=== PATIENT | male | born 1995 | race Caucasian/White ===

== ENCOUNTER 2018-03-12 16:13 | Emergency (ER) | payer OTHER ==
[2018-03-12 18:20] VITALS: BP 150/87
--- NOTE | 2018-03-12 19:05 | UC ---
Abdominal Pain Male HPI - HPI Summary HPI Summary: 22-year-old male presents with 3 day history of lower back pain that has slowly begun to localize to the lower abdomen with the right side being more prominent. States he thought he may have seen some blood in his urine today. Associated with subjective fever and chills. Denies chest pain, shortness of breath, nausea, vomiting, diarrhea, dysuria, frequency, urgency, or penile discharge. - History of Current Complaint Chief Complaint: UCGU Stated Complaint: LOW BACK PAIN Time Seen by Provider: 03/12/18 18:43 Hx Obtained From: Patient Onset/Duration: Gradual Onset, Lasting Days - 3 Severity Initially: Mild Severity Currently: Moderate Pain Intensity: 4 Radiates: No Character: Cramping, Sharp Aggravating Factor(s): Nothing Alleviating Factor(s): Nothing Associated Signs And Symptoms: Positive: Fever, Back Pain, Urinary Symptoms - hematuria. Negative: Chest Pain, Constipation, Blood in Stool, Nausea, Vomiting , Diarrhea, Penile Discharge - Allergies/Home Medications Allergies/Adverse Reactions: Allergies Allergy/AdvReac Type Severity Reaction Status Date / Time No Known Allergies Allergy Verified 09/20/12 17:24 Home Medications: Home Medications Mirtazapine [Remeron] 15 mg PO DAILY PRN 03/12/18 [History Confirmed 03/12/18] PMH/Surg Hx/FS Hx/Imm Hx Previously Healthy: Yes - Denies significant PMH - Surgical History Surgical History: None - Family History Family History: Noncontributory - Social History Occupation: Unemployed Lives: With Family Alcohol Use: None Substance Use Type: Marijuana Substance Use Comment - Amount & Last Used: DAILY Smoking Status (MU): Current Every Day Smoker Type: eCigarettes - Immunization History Vaccination Up to Date: Yes Review of Systems Constitutional: Fever, Chills - Hematuria Skin: Negative Respiratory: Negative Cardiovascular: Negative Gastrointestinal: Abdominal Pain Genitourinary: Hematuria Is Patient Immunocompromised?: No All Other Systems Reviewed And Are Negative: Yes Physical Exam Triage Information Reviewed: Yes Appearance: Well-Appearing, No Pain Distress, Well-Nourished Vital Signs: Initial Vital Signs Temp 99.2 F 03/12/18 18:12 Pulse 73 03/12/18 18:12 Resp 16 03/12/18 18:12 BP 150/87 03/12/18 18:12 Pulse Ox 100 03/12/18 18:12 Vital Signs Reviewed: Yes Neck: Positive: Supple, Nontender Respiratory: Positive: Lungs clear, Normal breath sounds, No respiratory distress Cardiovascular: Positive: RRR, No Murmur Abdomen Description: Positive: No Organomegaly, Soft, Other: - RLQ tenderness without rebound or guarding.. Negative: CVA Tenderness (R), CVA Tenderness (L) , Distended, Guarding Bowel Sounds: Positive: Hyperactive Neurological: Positive: Alert Skin Exam: Normal Abd Pain Male Course/Dx - Course Course Of Treatment: 22 year old male with 3 day history of low back pain that localized to right lower abdominal pain. Afebrile. Mild RLQ tenderness on exam. UA negative. Although I do not suspect appendicitis cannot rule this out therefore recommend further evaluation in the ED. Patient agreeable to exam in ED and will transport via private vehicle. - Differential Dx/Clinical Impression Differential Diagnosis/HQI/PQRI: Appendicitis, Diverticulitis, Renal Colic, Ureteral Stone Provider Diagnoses: RLQ pain - Physician Notification/Consults Discussed Patient Care With: Kareem Zamarripa - [facility] ED Time Discussed With Above Provider: 19:05 Instructed by Provider To: MD Will See In ED Discharge - Sign-Out/Discharge Documenting (check all that apply): Patient Departure All imaging exams completed and their final reports reviewed: No Studies - Discharge Plan Condition: Stable Disposition: HOME-RECOMMEND TO ED Patient Education Materials: Abdominal Pain (ED) Referrals: Uri Lacy MD [Primary Care Provider] - Additional Instructions: The urine test in the clinic today showed no evidence of an infection or kidney stone. With your pain in the right lower quadrant I cannot rule out the possibility of appendicitis therefore recommend that you go strait to the emergency room for further evaluation. - Billing Disposition and Condition Condition: STABLE Disposition: Home-Recommend to ED
== END 2018-03-12 19:12 | disposition home health service (06) ==
LOC: UCCORT 16:13
DX: R10.31 Right lower quadrant pain (principal); F17.210 Nicotine dependence, cigarettes, uncomplicated; F12.90 Cannabis use, unspecified, uncomplicated
CPT/HCPCS: 81003; 99202; G0463

== ENCOUNTER 2018-04-23 16:40 | Emergency (ER) | payer OTHER ==
[2018-04-23] MEDS ORDERED: Ondansetron ODT TAB* 4 MG PO ONE (18:40)
[2018-04-23] MEDS ORDERED: Ketorolac INJ* 60 MG/2 ML VIAL IM ONE (18:40)
--- NOTE | 2018-04-23 18:42 | ED ---
Headache - HPI Summary HPI Summary: pt presents for evaluation of his headache. he is sensitive to light. he states that he does not typicaly get migraines. he has been feeling ill. he denies any fever or chills. he denies any weakness. - History Of Current Complaint Chief Complaint: UCHeleindajean carlos Stated Complaint: HEADACHE,NAUSEA Hx Obtained From: Patient Onset/Duration: Gradual Onset Initially Headache Was: Moderate Currently Pain Is: Mild Timing: Intermittent, Lasting: Location of Headache: Frontal Aggravating Factor: Bright Lights Allevating Factors: Nothing - Allergies/Home Medications Allergies/Adverse Reactions: Allergies Allergy/AdvReac Type Severity Reaction Status Date / Time No Known Allergies Allergy Verified 04/23/18 18:30 Home Medications: Home Medications Acetaminophen [Acetaminophen Extra Strength] 500 mg PO Q6H PRN 04/23/18 [ History Confirmed 04/23/18] Aspirin/Acetaminophen/Caffeine [Excedrin Migraine Caplet] 1 each PO Q6H PRN 12/03 [History Confirmed 04/23/18] PMH/Surg Hx/FS Hx/Imm Hx Previously Healthy: Yes Respiratory History: Reports: Hx Asthma Infectious Disease History: No Infectious Disease History: Denies: Traveled Outside the [place] in Last 30 Days - Family History Family History: Noncontributory - Social History Alcohol Use: Occasionally Substance Use Type: Reports: Marijuana Substance Use Comment - Amount & Last Used: DAILY Smoking Status (MU): Current Every Day Smoker Type: eCigarettes Review of Systems Constitutional: Negative Positive: Photophobia. Negative: Blurred Vision, Diplopia, Drainage ENT: Negative Cardiovascular: Negative Respiratory: Negative Gastrointestinal: Negative Genitourinary: Negative Musculoskeletal: Negative Skin: Negative Positive: Headache. Negative: Weakness, Paresthesia, Numbness, Syncope Positive: Anxious All Other Systems Reviewed And Are Negative: No Physical Exam Triage Information Reviewed: Yes Vital Signs On Initial Exam: Initial Vitals Temp Pulse Resp BP Pulse Ox 98.9 F 76 18 122/79 99 04/23/18 18:28 04/23/18 18:28 04/23/18 18:28 04/23/18 18:28 04/23/18 18:28 Vital Signs Reviewed: Yes Appearance: Positive: Ill-Appearing - mildly Skin: Positive: Warm, Dry Eyes: Positive: Normal, EOMI ENT: Positive: Normal ENT inspection, Hearing grossly normal, Pharynx normal Neck: Positive: Supple, Nontender Respiratory/Lung Sounds: Positive: Clear to Auscultation, Breath Sounds Present , Decreased Breath Sounds Cardiovascular: Positive: Normal, RRR Abdomen Description: Positive: Nontender, Soft Bowel Sounds: Positive: Present Musculoskeletal: Positive: Normal, Strength/ROM Intact Neurological: Positive: Normal, Sensory/Motor Intact, Alert, Oriented to Person Place, Time, CN Intact II-III Psychiatric: Positive: Normal, Affect/Mood Appropriate AVPU Assessment: Alert Diagnostics - Vital Signs Vital Signs Temp Pulse Resp BP Pulse Ox 04/23/18 18:28 98.9 F 76 18 122/79 99 - Laboratory Lab Statement: Any lab studies that have been ordered have been reviewed, and results considered in the medical decision making process. Headache Course/Dx - Course Course Of Treatment: im toradol and zofran ordered. pt vasovagaled. he did not fall off the bed. he came to very quickly. he was given ivf, iv zofran, compazine, benadryl, toradol. he felt better. he was given work excuse for tomorrow. he was encouraged to f/u with pcp tomorrow. - Diagnoses Provider Diagnoses: Migraine Discharge - Sign-Out/Discharge Documenting (check all that apply): Patient Departure All imaging exams completed and their final reports reviewed: No Studies - Discharge Plan Condition: Stable Disposition: HOME Patient Education Materials: Acute Headache (ED) Forms: *Work Release Referrals: Uri Lacy MD [Primary Care Provider] - Additional Instructions: take zofran for nausea. take tylenol and motrin for pain. please followup with your primary care physician. return if worse or any new symptoms. - Billing Disposition and Condition Condition: STABLE Disposition: Home
[2018-04-23] MEDS ORDERED: NS 0.9% 1000 ML* 1,000 ML IV ONE (19:01)
[2018-04-23] MEDS ORDERED: PROCHLORPERAZINE INJ 5 MG/ML 2 ML VIAL IV ONE (19:04)
[2018-04-23] MEDS ORDERED: diPHENhydraMINE IV* 50 MG/ML 1 ml VIAL (BENADRYL) IV ONE (19:04)
[2018-04-23] MEDS ORDERED: Ketorolac INJ* 30 MG/ML 1 ML VIAL IV PUSH ONE (19:05)
[2018-04-23] MEDS ORDERED: Metoclopramide IV* 5 MG/ML 2 ML VIAL IV ONE (19:27)
[2018-04-23 20:20] VITALS: BP 110/68
== END 2018-04-23 20:23 | disposition home or self-care (01) ==
LOC: UCCORT 16:40
DX: G43.909 Migraine, unspecified, not intractable, without status migrainosus (principal); F17.210 Nicotine dependence, cigarettes, uncomplicated; J45.909 Unspecified asthma, uncomplicated; F12.90 Cannabis use, unspecified, uncomplicated; Z79.82 Long term (current) use of aspirin
CPT/HCPCS: 96361; 96374; 96375; 99211; A9270-GY; G0463; J0780; J1200; J1885; J2765

== ENCOUNTER 2019-03-03 12:58 | Emergency (ER) | payer OTHER ==
[2019-03-03 13:31] VITALS: BP 118/65
--- NOTE | 2019-03-03 13:43 | UC ---
Throat Pain/Nasal Jorje HPI - HPI Summary HPI Summary: 23-year-old male presents with 3 day history of chills, malaise, body aches, headache, nasal congestion, postnasal drip, sore throat, occasionally productive cough, mild chest tightness, and wheezing. States took aspirin and Sudafed yesterday with some improvement in his symptoms. States he has a history of asthma although is not currently under treatment. Denies fever, ear pain, dysphagia, chest pain, palpitations, abdominal pain, nausea, vomiting, or diarrhea. - History of Current Complaint Chief Complaint: UCRespiratory Stated Complaint: THROAT,BODYACHES,CAMPA Time Seen by Provider: 03/03/19 13:33 Hx Obtained From: Patient Pain Intensity: 4 - Allergies/Home Medications Allergies/Adverse Reactions: Allergies Allergy/AdvReac Type Severity Reaction Status Date / Time seasonal Allergy Congestion Uncoded 03/03/19 13:23 Home Medications: Home Medications Aspirin TAB* [Aspirin 325 MG TAB*] 325 mg PO Q6H PRN 03/03/19 [History Confirmed 03/03/19] PMH/Surg Hx/FS Hx/Imm Hx Previously Healthy: Yes Respiratory History: Asthma - Surgical History Surgical History: None - Family History Known Family History: Positive: Non-Contributory Family History: Noncontributory - Social History Occupation: Employed Full-time Lives: With Family Alcohol Use: Occasionally Substance Use Type: Marijuana Substance Use Comment - Amount & Last Used: DAILY, 03/02/19 Smoking Status (MU): Heavy Every Day Tobacco Smoker Type: eCigarettes - Immunization History Vaccination Up to Date: Yes Review of Systems All Other Systems Reviewed And Are Negative: Yes Constitutional: Positive: Chills. Negative: Fever Skin: Negative: Rash Eyes: Negative: Drainage, Eye Redness ENT: Positive: Sore Throat, Nasal Discharge, Sinus Congestion. Negative: Ear Ache, Sinus Pain/Tenderness Respiratory: Positive: Cough, Other - Wheezing Cardiovascular: Negative: Palpitations Gastrointestinal: Negative: Abdominal Pain, Vomiting, Diarrhea, Nausea Genitourinary: Positive: Negative Musculoskeletal: Positive: Myalgia Neurological: Positive: Headache Is Patient Immunocompromised?: No Physical Exam - Summary Physical Exam Summary: GENERAL APPEARANCE: Well developed, well nourished, alert and cooperative, and appears to be in no acute distress. EYES: Conjunctiva clear. No drainage. EARS: External auditory canals and tympanic membranes clear, hearing grossly intact. NOSE: Mild-moderate nasal congestion. No nasal discharge. THROAT: Mild pharyngeal erythema with post-nasal drip. No tonsilar inflammation , swelling, exudate, or lesions. Uvula midline. NECK: Neck supple, non-tender without lymphadenopathy. CARDIAC: Normal S1 and S2. No S3, S4 or murmurs. Rhythm is regular. There is no peripheral edema, cyanosis or pallor. Extremities are warm and well perfused. Capillary refill is less than 2 seconds. Peripheral pulses intact. LUNGS: Clear to auscultation without rales, rhonchi, wheezing or diminished breath sounds. ABDOMEN: Positive bowel sounds. Soft, nondistended, nontender. No guarding or rebound. No masses or hepatosplenomegally. MUSKULOSKELETAL: ROM intact to all extremities. No joint erythema or tenderness. Normal muscular development. Normal gait. SKIN: Skin normal color, texture and turgor with no lesions or eruptions. Triage Information Reviewed: Yes Vital Signs: Initial Vital Signs Temp 98.5 F 03/03/19 13:25 Pulse 88 03/03/19 13:25 Resp 20 03/03/19 13:25 BP 118/65 03/03/19 13:25 Pulse Ox 99 03/03/19 13:25 Vital Signs Reviewed: Yes Throat Pain/Nasal Course/Dx - Course Course Of Treatment: 23-year-old male presents with 3 day history of chills, malaise, body aches, headache, nasal congestion, postnasal drip, sore throat, occasionally productive cough, mild chest tightness, and wheezing. States took aspirin and Sudafed yesterday with some improvement in his symptoms. States he has a history of asthma although is not currently under treatment. Denies fever, ear pain, dysphagia, chest pain, palpitations, abdominal pain, nausea, vomiting, or diarrhea. Afebrile. Vital signs stable. Patient had mild to moderate nasal congestion, mild pharyngeal erythema without tonsillar swelling or exudate, postnasal drip, no cervical lymphadenopathy, clear bilateral breath sounds, a dry nonproductive cough, and otherwise unremarkable exam. Rapid strep test was negative. Reviewed results with the patient and discussed that his symptoms were likely from a viral upper respiratory infection and am recommending symptomatic treatment at this time including fluticasone nasal spray, saline rinses, [id number] decongestant, and Tessalon Perles 1 capsule every 8 hours as needed for cough. He is to return here or follow-up with his primary care provider in 5-7 days if symptoms are not improving. Anticipatory guidance and warning signs are reviewed with the patient. Verbalizes understanding and agrees with plan of care. - Differential Dx/Diagnosis Differential Diagnosis/HQI/PQRI: Influenza, Pharyngitis, Sinusitis, URI Provider Diagnosis: Viral URI with cough Discharge ED - Sign-Out/Discharge Documenting (check all that apply): Patient Departure All imaging exams completed and their final reports reviewed: No Studies - Discharge Plan Condition: Stable Disposition: HOME Prescriptions: Benzonatate CAP* [Tessalon 100 MG CAP*] 100 mg PO TID PRN #21 cap PRN Reason: Cough Fluticasone NASAL SPRAY 50MCG* [Flonase NASAL SPRAY 50MCG*] 2 spray BOTH NARES DAILY #1 btl Patient Education Materials: Upper Respiratory Infection (ED) Forms: *Work Release Referrals: Uri Lacy MD [Primary Care Provider] - 5 Days Additional Instructions: Your history and exam are consistent with a viral upper respiratory infection. Viral infections do not respond to antibiotics and are limited to the treatment of symptoms. Viral infections typically run their course in 7-10 days. Drink plenty of fluids to avoid dehydration especially if you are running any fever. Use a saline rinse kit such as Neti Pot or NeilMed at least twice a day to help thin secretions and promote drainage of the sinuses. Use fluticasone (Flonase) nasal spray 2 sprays each nostril once daily. Take over the counter acetaminophen (Tylenol) or ibuprofen (Advil, Motrin) according to directions as needed for pain or fever. Use salt water gargles several times a day if you have a sore throat. You may also use Chloraseptic spray or Cepacol lonzenges according to directions which contain a numbing medication and can provide some temporary relief from your sore throat. Follow up with your primary care provider in 5-7 days if symptoms persist. Seek immediate medical attention in the emergency room if you have fever greater than 100.5 F despite taking acetaminophen or ibuprofen, have chest pain , difficulty breathing, are unable to swallow, or have any worsening of symptoms. - Billing Disposition and Condition Condition: STABLE Disposition: Home
== END 2019-03-03 14:25 | disposition home or self-care (01) ==
LOC: UCCORT 12:58
DX: J06.9 Acute upper respiratory infection, unspecified (principal); F17.290 Nicotine dependence, other tobacco product, uncomplicated; Z79.82 Long term (current) use of aspirin
CPT/HCPCS: 87651; 99212; G0463